=== PATIENT | male | born 1960 | race Two or more races ===

== ENCOUNTER 2017-04-25 18:01 | Inpatient (IN) | payer OTHER ==
[~2017-04-25] VITALS: Ht 172.7 cm; Wt 95.3 kg
== END 2017-05-27 12:15 | disposition home or self-care (01) | DRG 504 ==
LOC: MEDI 18:01
PROVIDERS: Specialist
PROC: BQ3MY0Z Magnetic Resonance Imaging (MRI) of Left Foot using Other Contrast, Unenhanced and Enhanced (ICD-10-PCS; 2017-04-26)
PROC: B44HZZZ Ultrasonography of Bilateral Lower Extremity Arteries (ICD-10-PCS; 2017-04-26)
PROC: B54DZZZ Ultrasonography of Bilateral Lower Extremity Veins (ICD-10-PCS; 2017-04-26)
PROC: 02HV33Z Insertion of Infusion Device into Superior Vena Cava, Percutaneous Approach (ICD-10-PCS; 2017-05-09)
PROC: 0Y6W0Z0 Detachment at Left 4th Toe, Complete, Open Approach (ICD-10-PCS; principal; 2017-05-23 14:30)
DX: M86.172 Other acute osteomyelitis, left ankle and foot (principal); L97.528 Non-pressure chronic ulcer of other part of left foot with other specified severity; I96 Gangrene, not elsewhere classified; I87.2 Venous insufficiency (chronic) (peripheral); I10 Essential (primary) hypertension; L03.032 Cellulitis of left toe; B96.5 Pseudomonas (aeruginosa) (mallei) (pseudomallei) as the cause of diseases classified elsewhere

== ENCOUNTER 2017-09-26 10:01 | Outpatient (CLI) | payer OTHER | END 2017-09-26 10:20 | disposition home or self-care (01) | LOC: MRI 10:01 | DX: Z89.422 Acquired absence of other left toe(s) (principal) | CPT/HCPCS: 73718 ==

== ENCOUNTER 2020-07-02 12:50 | Outpatient (CLI) | payer OTHER | END 2020-07-02 12:57 | disposition home or self-care (01) | LOC: RAD 12:50 | PROVIDERS: ATTEND Internal Medicine Cardiovascular Disease | DX: M12.88 Other specific arthropathies, not elsewhere classified, other specified site (principal); M46.42 Discitis, unspecified, cervical region ==

== ENCOUNTER 2020-07-14 08:14 | Outpatient (CLI) | payer OTHER | END 2020-07-14 08:16 | disposition home or self-care (01) | LOC: NUCLEAR 08:14 | PROVIDERS: ATTEND Internal Medicine Cardiovascular Disease | DX: I87.2 Venous insufficiency (chronic) (peripheral) (principal) ==

== ENCOUNTER 2020-07-18 08:21 | Outpatient (CLI) | payer OTHER | END 2020-07-18 08:22 | disposition home or self-care (01) | LOC: NUCLEAR 08:21 | PROVIDERS: ATTEND Internal Medicine Cardiovascular Disease | DX: I73.9 Peripheral vascular disease, unspecified (principal) ==

== ENCOUNTER 2020-10-10 11:26 | Outpatient (CLI) | payer OTHER | END 2020-10-10 11:34 | disposition home or self-care (01) | LOC: RAD 11:26 | PROVIDERS: ATTEND Internal Medicine Cardiovascular Disease | DX: M51.37 Other intervertebral disc degeneration, lumbosacral region (principal); M12.88 Other specific arthropathies, not elsewhere classified, other specified site ==

== ENCOUNTER 2023-05-11 09:43 | Outpatient (CLI) | payer OTHER | END 2023-05-11 09:44 | disposition home or self-care (01) | LOC: NUCLEAR 09:43 | PROVIDERS: ATTEND Internal Medicine Cardiovascular Disease | DX: I87.2 Venous insufficiency (chronic) (peripheral) (principal) ==

== ENCOUNTER 2023-10-17 15:22 | Outpatient (CLI) | payer OTHER ==
[2023-10-17 16:13] LABS: CREATININE SERUM 1.08 mg/dL (0.70-1.30)
== END 2023-10-17 15:26 | disposition home or self-care (01) ==
LOC: LAB 15:22
PROVIDERS: ATTEND Radiology Diagnostic Radiology
DX: R41.2 Retrograde amnesia (principal)

== ENCOUNTER 2023-10-18 08:50 | Outpatient (CLI) | payer OTHER | END 2023-10-18 09:09 | disposition home or self-care (01) | LOC: TOM 08:50 | PROVIDERS: ATTEND Internal Medicine Cardiovascular Disease | DX: R41.2 Retrograde amnesia (principal); G20.C Parkinsonism, unspecified; G30.9 Alzheimer's disease, unspecified | CPT/HCPCS: 70470; Q9965 ==

== ENCOUNTER 2024-01-05 15:23 | Emergency (ER) | payer OTHER ==
[~2024-01-05] VITALS: Ht 172.7 cm; Wt 86.2 kg
[2024-01-05] MEDS ORDERED: TENORMIN25 MG PO (15:35)
[2024-01-05] MEDS ORDERED: CILOSTAZOL100 MG PO (15:36)
[2024-01-05] MEDS ORDERED: LIPITOR40 M1 PO (15:36)
[2024-01-05] MEDS ORDERED: PLAVIX75 MG PO (15:37)
[2024-01-05] MEDS ORDERED: PENTOXIFYLLINE400 MG PO (15:37)
[2024-01-05] MEDS ORDERED: METOPROLOL SUCCINATE 25 MG TAB.SR.24H PO ONE (17:15)
[2024-01-05 17:22] LABS: HEMATOCRIT 43.4 % (39.0-48.0); HEMOGLOBIN 14.9 g/dL (13-16.00); MEAN CELL VOLUME 89.2 fL (80.0-100.00); MEAN CORPUSCULAR HEMOGLOBIN 30.7 pg (27.00-32.0); MEAN CORPUSCULAR HGB CONC 34.4 g/dl (32.0-36.0); PLATELET COUNT 201 K/uL (150-450); RED BLOOD COUNT 4.86 M/uL (4.00-6.00); RED CELL DISTRIBUTION WIDTH 13.5 % (11.5-14.5)
[2024-01-05 18:08] LABS: INR 1.1; PARTIAL THROMBOPLASTIN TIME 27.1 SECONDS (22.0-34.0); PROTHROMBIN TIME 11.9 SECONDS (9.0-11.5)
[2024-01-05 18:13] LABS: CALCIUM 9.3 mg/dL (8.5-10.1); CREATININE SERUM 1.03 mg/dL (0.70-1.30); GFR 73.42; POTASSIUM 4.41 mEq/L (3.5-5.1)
== END 2024-01-05 20:30 | disposition home or self-care (01) ==
LOC: ER 15:24
PROVIDERS: Emergency Medicine
DX: I10 Essential (primary) hypertension (principal)

== ENCOUNTER 2024-11-14 07:18 | Outpatient (CLI) | payer OTHER ==
[~2024-11-14 07:18] MED LIST: CILOSTAZOL100 MG PO; LIPITOR40 M1 PO; PENTOXIFYLLINE400 MG PO; PLAVIX75 MG PO; TENORMIN25 MG PO
== END 2024-11-14 07:27 | disposition home or self-care (01) ==
LOC: TOM 07:18
PROVIDERS: ATTEND Internal Medicine
DX: I73.9 Peripheral vascular disease, unspecified (principal)
CPT/HCPCS: 73702; 73706; Q9965